=== PATIENT | female | born 1980 | race Caucasian/White ===

== ENCOUNTER 2019-01-02 15:07 | Emergency (ER) | payer OTHER ==
[~2019-01-02] VITALS: Ht 170.2 cm; Wt 113.4 kg
[~2019-01-02 15:07] MED LIST: ACET-704 PO; CYCL-331 PO; KETO10TA PO
[2019-01-02] MEDS ORDERED: ASPIRIN 81 MG TAB.CHEW PO ONE (15:30)
--- NOTE | 2019-01-02 15:33 | EKG ---
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
--- NOTE | 2019-01-02 15:35 | PHYS DOC ---
Past History Past Medical History: Diabetes, Hypertension Past Surgical History: Alcohol Use: None Drug Use: None Adult General Chief Complaint Chief Complaint: CHEST PAIN HPI HPI 38-year-old female presents with chest pain. The patient is a intermittent chest pain for the last 2-3 weeks. It is gotten worse the last few days. Today the patient had episodes all day long. They usually last about 5 minutes and then improved. It is a central pressure with a sharpness at its peak. At worst it 10 out of 10. Currently she is 7 out of 10. She has also had shortness of breath with these episodes and dizziness. Vomiting. She does believe that activity makes it worse. 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 Feet a lot. She also admits to having a lot of stress at work lately. She has never had a cardiac catheter or stress test. She does have family history of cardiovascular disease under the age of 50. She denies fever or chills. Review of Systems Review of Systems Constitutional: Denies fever or chills [] Eyes: Denies change in visual acuity, redness, or eye pain [] HENT: Denies nasal congestion or sore throat [] Respiratory: shortness of breath [] Cardiovascular: No additional information not addressed in HPI [] GI: Nausea. Denies abdominal pain, vomiting, bloody stools or diarrhea [] : Denies dysuria or hematuria [] Musculoskeletal: Denies back pain or joint pain [] Integument: Denies rash or skin lesions [] Neurologic: Denies headache, focal weakness or sensory changes [] Endocrine: Denies polyuria or polydipsia [] All other systems were reviewed and found to be within normal limits, except as documented in this note. Current Medications Current Medications Current Medications Medications (Trade) Dose Ordered Sig/Good Start Time Stop Time Status Last Admin Dose Admin Aspirin (Children'S Aspirin) 324 mg 1X ONCE 01/02/19 15:30 01/02/19 15:31 Allergies Allergies Allergies Coded Allergies Type Severity Reaction Last Updated Verified No Known Drug Allergies 09/25/15 No Physical Exam Physical Exam Constitutional: Well developed, obese, well nourished, no acute distress, non- toxic appearance. [] HENT: Normocephalic, atraumatic, bilateral external ears normal, oropharynx moist, no oral exudates, nose normal. [] Eyes: PERRLA, EOMI, conjunctiva normal, no discharge. [] Neck: Normal range of motion, no tenderness, supple, no stridor. [] Cardiovascular:Heart rate regular rhythm, no murmur [] Lungs & Thorax: Bilateral breath sounds clear to auscultation [] Abdomen: Bowel sounds normal, soft, no tenderness, no masses, no pulsatile masses. [] Skin: Warm, dry, no erythema, no rash. [] Back: No tenderness, no CVA tenderness. [] Extremities: No tenderness, no cyanosis, no clubbing, ROM intact, no edema. [] Neurologic: Alert and oriented X 3, normal motor function, normal sensory function, no focal deficits noted. [] Psychologic: Affect normal, judgement normal, mood normal. [] EKG EKG Sinus rhythm, rate 84, normal axis, no ST elevations or depressions.[] Radiology/Procedures Radiology/Procedures [] Impressions: EXAM: Chest, single view. HISTORY: Chest pain. COMPARISON: None. FINDINGS: A frontal view the chest is obtained. There is no infiltrate, pleural effusion or pneumothorax. The heart is normal in size. IMPRESSION: No acute pulmonary finding. Electronically signed by: Malissa Jones MD (01/02/2019 3:40 PM) [facility] DICTATED AND SIGNED BY: MALISSA JONES MD DATE: 01/02/19 1540 CC: ERIKA JACKSON DO; PREM CMLEOD APRN Course & Med Decision Making Course & Med Decision Making Pertinent Labs and Imaging studies reviewed. (See chart for details) The patient's labs are unremarkable. Her troponin is negative. EKG is unremarkable. Her chest x-ray is unremarkable Her HEART score is 2. She can be safely discharged with follow-up with her primary physician. [] Dragon Disclaimer Dragon Disclaimer This electronic medical record was generated, in whole or in part, using a voice recognition dictation system. Departure Departure: Impression: Primary Impression: Chest pain Disposition: HOME, SELF-CARE Condition: STABLE Referrals: PREM MCLEOD APRN (PCP) Patient Instructions: Chest Pain (Nonspecific), [id number] Problem Qualifiers Primary Impression: Chest pain Chest pain type: unspecified Qualified Codes: R07.9 - Chest pain, unspecified ERIKA JACKSON DO Jan 02, 2019 15:35
--- NOTE | 2019-01-02 15:45 | RAD ---
EXAM: Chest, single view. HISTORY: Chest pain. COMPARISON: None. FINDINGS: A frontal view the chest is obtained. There is no infiltrate, pleural effusion or pneumothorax. The heart is normal in size. IMPRESSION: No acute pulmonary finding. Electronically signed by: Malissa Jones MD (01/02/2019 3:40 PM) [place] [id number]
[2019-01-02 15:50] LABS: BASO % 0 % (0-3); EOS # 0.2 x10^3/uL (0.0-0.7); EOS % 2 % (0-3); HEMATOCRIT 42.8 % (36.0-47.0); LYMPH # 2.9 x10^3/uL (1.0-4.8); LYMPH % 30 % (24-48); MEAN CORPUSCULAR HEMOGLOBIN 27 pg (25-35); MEAN CORPUSCULAR HGB CONC 33 g/dL (31-37); MEAN CORPUSCULAR VOLUME 82 fL (79-100); MONO # 0.6 x10^3/uL (0.0-1.1); MONO % 6 % (0-9); NEUT # 5.9 x10^3uL (1.8-7.7); NEUT % 61 % (31-73); PLATELET COUNT 263 x10^3/uL (140-400); RED BLOOD COUNT 5.23 x10^6/uL (3.50-5.40); RED CELL DISTRIBUTION WIDTH 15.8 % (11.5-14.5); WHITE BLOOD COUNT 9.6 x10^3/uL (4.0-11.0)
[2019-01-02 15:59] LABS: ALBUMIN 3.7 g/dL (3.4-5.0); ALBUMIN/GLOBULIN RATIO 0.9 (1.0-1.7); CREATININE 0.6 mg/dL (0.6-1.0); GFR 110.7; POTASSIUM 3.8 mmol/L (3.5-5.1); TOTAL BILIRUBIN 0.3 mg/dL (0.2-1.0); TOTAL PROTEIN 7.8 g/dL (6.4-8.2)
[2019-01-02] MEDS ORDERED: LIDO:MAALOX 1:1 20 ML SINGLE DOSE. PO ONE (17:15)
[2019-01-02 17:18] VITALS: BP 146/77
== END 2019-01-02 17:06 | disposition home or self-care (01) ==
LOC: ER 15:07
DX: R07.89 Other chest pain (principal); R11.2 Nausea with vomiting, unspecified; R42 Dizziness and giddiness; E11.9 Type 2 diabetes mellitus without complications; I10 Essential (primary) hypertension
CPT/HCPCS: 36415; 71045; 80053; 84484; 85025; 93005; 99284

== ENCOUNTER → 2019-09-03 | Outpatient (CLI) | payer OTHER ==
--- NOTE | 2019-09-03 09:24 | RAD ---
EXAM: Abdomen sonogram. HISTORY: Left upper quadrant pain. TECHNIQUE: Sonographic imaging of the abdomen was performed. COMPARISON: None. FINDINGS: The liver is enlarged. There is hepatic steatosis. No focal hepatic lesion is seen. The gallbladder wall is normal in thickness. The kidneys are normal in size. No solid or cystic renal lesion is seen. The pancreas, aorta and inferior vena cava are partially obscured due to bowel gas. The visualized portions of the aorta demonstrate atherosclerotic plaque. The spleen is mildly enlarged, measuring 14.4 cm. IMPRESSION: 1. Hepatomegaly and hepatic steatosis. 2. Splenomegaly. Electronically signed by: Malissa Jones MD (09/03/2019 9:22 AM) [facility]
== END | disposition home or self-care (01) ==
LOC: US 07:32
PROVIDERS: ATTEND Registered Nurse
DX: R16.2 Hepatomegaly with splenomegaly, not elsewhere classified (principal); K76.0 Fatty (change of) liver, not elsewhere classified; I70.8 Atherosclerosis of other arteries
CPT/HCPCS: 76700

== ENCOUNTER → 2020-12-22 | Outpatient (CLI) | payer OTHER ==
--- NOTE | 2020-12-22 13:48 | RAD ---
Examination: Ultrasound pelvis HISTORY: History of hirsutism, hormonal imbalance COMPARISON: None available Findings/ impression: The uterus is enlarged and measures 24.4 x 22 x 14 cm. There are multiple echogenicities identified i n the uterus likely fibroids with the largest measuring 8.6 x 11.4 x 10.8 cm . The endometrium could not be identified. The right and left ovaries could not be identified. Electronically signed by: Oliverio Barajas MD (12/22/2020 1:46 PM) [id number]
== END ==
LOC: US 12:47
PROVIDERS: ATTEND Obstetrics & Gynecology
DX: L68.0 Hirsutism (principal); N85.2 Hypertrophy of uterus; E34.9 Endocrine disorder, unspecified
CPT/HCPCS: 76856

== ENCOUNTER → 2021-11-07 | Outpatient (CLI) | payer OTHER ==
[~2021-11-07] MED LIST changes: -CYCL-331 PO; +CYCL10TA19 PO
--- NOTE | 2021-11-07 16:02 | RAD ---
3 views right shoulder 11/07/2021 3:30 PM Indication: Reason: right shoulder injury x 2-3 weeks ago, moving and lifting stuff / Comparison: None Findings: There is no acute fracture or dislocation. Articular surfaces are uninterupted and smooth. Soft tissues are unremarkable. Impression: No evidence of acute osseous abnormality. Electronically signed by: Morris Li MD (11/07/2021 4:00 PM) [id number]
== END ==
LOC: RAD 15:24
PROVIDERS: ATTEND Nurse Practitioner Family
DX: S49.91XA Unspecified injury of right shoulder and upper arm, initial encounter (principal); M25.511 Pain in right shoulder; X50.9XXA Other and unspecified overexertion or strenuous movements or postures, initial encounter; Y93.89 Activity, other specified; Y92.89 Other specified places as the place of occurrence of the external cause; Y99.8 Other external cause status
CPT/HCPCS: 73030

== ENCOUNTER → 2022-01-01 | Outpatient (CLI) | payer OTHER ==
--- NOTE | 2022-01-01 17:05 | RAD ---
EXAM: XR CERVICAL SPINE 2-3V 01/01/2022 3:40 PM CLINICAL INDICATION: Neck pain COMPARISON: None TECHNIQUE: AP, lateral, swimmer's, and odontoid views of the cervical spine FINDINGS: No acute fracture. Alignment is normal. Disc spaces are maintained and facet joints are no rmal. The dens is intact and symmetric and the ring of C1. Prevertebral soft tissues is normal. IMPRESSION: Normal cervical spine radiograph. Electronically signed by: Shirley Woodruff MD (01/01/2022 5:02 PM) [id number]
== END ==
LOC: RAD 15:32
PROVIDERS: ATTEND Physician Assistant
DX: M54.2 Cervicalgia (principal); M54.12 Radiculopathy, cervical region
CPT/HCPCS: 72040

== ENCOUNTER → 2022-01-05 | Outpatient (CLI) | payer OTHER ==
--- NOTE | 2022-01-08 16:07 | RAD ---
Bilateral digital screening 2-D and 3-D (digital breast tomosynthesis) mammogram: Reason for examination: Routine screening. Comparison: Mammogram from 11/23/2013. Interpretation was made with the benefit of CAD. FINDINGS: Breast density: Category A. Breast tissue is almost entirely fatty. No suspicious breast mass, malignant appearing calcifications, or architectural distortion is seen. IMPRESSION: No evidence of malignancy. Assessment: BI-RADS 1. Negative. Recommendation: Routine screening mammograms. The patient will receive a letter with the results in the mail. Patient information will be entered i nto the mammography reminder system with a target recall date for the next mammogram. A reminder cheli er will be generated. Electronically signed by: Faustina Gross MD (01/08/2022 4:05 PM) [id number]
== END ==
LOC: MAMMO 15:13
PROVIDERS: ATTEND Obstetrics & Gynecology
DX: Z12.31 Encounter for screening mammogram for malignant neoplasm of breast (principal)
CPT/HCPCS: 77063; 77067